=== PATIENT | female | born 1955 | race Caucasian/White ===

== ENCOUNTER 2021-06-30 14:47 | Emergency (ER) | payer OTHER, SELFPAY ==
--- NOTE | 2021-06-30 14:52 | ED.EYEPROB ---
HPI - Eye Problem General Chief complaint: Eye Problems Stated complaint: eye pain Time Seen by Provider: 06/30/21 15:03 Source: patient and RN notes reviewed Mode of arrival: ambulatory Limitations: no limitations History of Present Illness HPI Narrative: 65-year-old female presents with concern for irritation, slight swelling to the right upper eyelid. Reports symptoms started several days ago. She denies vision changes, eye pain. She denies purulent discharge. MD chief complaint: other (Right eye irritation, eyelid swelling) Related Data Allergies Allergy/AdvReac Type Severity Reaction Status Date / Time measles Allergy Unknown SWELLING Verified 06/30/21 14:58 vaccine,live,attenuated HANDS, ARMS mumps vaccine,live Allergy Unknown SWELLING Verified 06/30/21 14:58 HANDS, ARMS rubella virus live vaccine Allergy Unknown SWELLING Verified 06/30/21 14:58 HANDS, ARMS Review of Systems Review of Systems: CONSTITUTIONAL: Denies malaise, chills, sweats, or fever. EYES: Denies visual changes. Reports right eye redness, irritation, upper eyelid swelling. Denies discharge. ENT: Denies rhinorrhea, congestion, sinus pain, otalgia or sore throat. SKIN: Denies rash or itching. NEUROLOGIC: Denies numbness, weakness, or headache. PSYCHIATRIC: Denies anxiety or depression. All systems reviewed & are unremarkable except as noted in HPI and below PMFSH Comments At time of signature, agree with nursing past medical, surgical, social and family history. There is no relevant family history pertinent to the presenting complaint Exam Narrative: GENERAL: Well-appearing, well-nourished, and in no acute distress. HEAD: Normocephalic, atraumatic. EYES: PERRLA, sclera clear, and EOMI. No nystagmus. Right conjunctivae mildly injected with mild right upper lid edema, lower eyelid unremarkable, no periorbital edema noted ENT: Nares clear, turbinates pink, no rhinorrhea or epistaxis. Mucous membranes moist. TM pearly jay with sharp light reflex bilaterally; no tragal tenderness. NECK: Supple. CHEST: No respiratory distress. Speaks in full sentences. HEART: Regular rate and rhythm. SKIN: Warm, dry, no visible rash. NEURO: Alert and oriented x3. PSYCH: Normal mood and affect Course Course Emergency Course: Patient is aware of diagnosis, understands and agrees to treatment plan. Anticipatory guidance given. Patient agrees to follow-up as directed and is aware of reasons to seek care at the emergency department. Portions of this record may have been created with voice recognition software Level of Care: Express Care Visit Vital Signs Vital signs: Vital Signs Temperature 98.3 F 06/30/21 14:59 Pulse Rate 81 06/30/21 14:59 Respiratory Rate 18 06/30/21 14:59 Blood Pressure 151/89 H 06/30/21 14:59 Pulse Oximetry 99 06/30/21 14:59 Temperature 98.3 F 06/30/21 14:59 Pulse Rate 81 06/30/21 14:59 Respiratory Rate 18 06/30/21 14:59 Blood Pressure 151/89 H 06/30/21 14:59 Pulse Oximetry 99 06/30/21 14:59 Reviewed. MDM - Eye Problem MDM Narrative Medical decision making narrative: Consideration of the following conditions may be warranted for the presenting problem, they are not final diagnoses: Bacterial conjunctivitis, allergic conjunctivitis, viral conjunctivitis, foreign body, blepharitis, chalazion, hordeolum, corneal abrasion, preseptal cellulitis, orbital cellulitis. No evidence of proptosis, ophthalmoplegia, vision loss, pain with eye movement. Exam findings show no acute concerns or changes; patient is non-toxic appearing and is in no distress. Patient is appropriate for outpatient treatment and follow-up. Critical Care Time Critical Care Time Critical Care Time: No Discharge Plan Discharge Clinical Impression: Hordeolum Qualifiers: Hordeolum type: internum Laterality: right Eyelid: upper Qualified Code(s): H00.021 - Hordeolum internum right upper eyelid Patient Disposition: Home, Self-Ca
[2021-06-30 14:59] VITALS: BP 151/89; PULSE 81; RESP 18; TEMP 36.8; O2SAT 99
== END 2021-06-30 15:23 | disposition home or self-care (01) ==
PROVIDERS: Emergency Provider Nurse Practitioner
DX: H00.021 Hordeolum internum right upper eyelid (principal); K21.9 Gastro-esophageal reflux disease without esophagitis; Z96.641 Presence of right artificial hip joint
CPT/HCPCS: 99213; G0463

== ENCOUNTER 2021-10-14 08:39 | Emergency (ER) | payer OTHER, SELFPAY ==
--- NOTE | 2021-10-14 08:41 | ED.URI ---
HPI - URI/Sore Throat General Chief Complaint: Upper Respiratory Infection Stated Complaint: cough/uri Time Seen by Provider: 10/14/21 08:48 Source: patient, family, RN notes reviewed and old records reviewed Mode of arrival: ambulatory Limitations: no limitations History of Present Illness HPI Narrative: 66-year-old female presents to the [facility] with complaints of sinus congestion, cough, bilateral ear pain and pressure. Patient denies any fevers, chest pain, abdominal pain. No nausea vomiting or diarrhea. States since Saturday, 6 days it is just gradually gotten worse. No treatment prior to arrival MD elicited complaint: cough and sinus pain Consistency: constant Related Data Home Medications Medication Instructions Recorded Confirmed famotidine [Pepcid AC] 20 mg PO DAILY 10/14/21 10/14/21 Allergies Allergy/AdvReac Type Severity Reaction Status Date / Time measles Allergy Unknown SWELLING Verified 10/14/21 08:49 vaccine,live,attenuated HANDS, ARMS mumps vaccine,live Allergy Unknown SWELLING Verified 10/14/21 08:49 HANDS, ARMS rubella virus live vaccine Allergy Unknown SWELLING Verified 10/14/21 08:49 HANDS, ARMS Review of Systems Review of Systems: All systems reviewed & are unremarkable except as noted in HPI and below Constitutional: Constitutional: Reports no additional constitutional complaints, Denies chills, Denies fever(s) and Denies headache(s) Eyes: Eyes: Reports no additional eye complaints ENT: Reports as per HPI, Denies vertigo, Denies dizziness, Denies headache(s), Reports nasal congestion and Denies sore throat Comments: Bilateral ear Cardiovascular: Cardiovascular: Reports no additional cardiovascular complaints, Denies chest pain, Denies syncope, Denies rapid heart rate and Denies dyspnea Respiratory: Respiratory: Reports as per HPI, Reports chest congestion, Reports cough, Denies dyspnea and Denies wheezing Gastrointestinal: Gastrointestinal: Reports no additional gastrointestinal complaints, Denies abdominal pain, Denies diarrhea, Denies nausea and Denies vomiting Musculoskeletal: Musculoskeletal: Reports no additional musculoskeletal complaints and Denies numbness Integumentary/Breasts: Skin/Breast: Reports system reviewed and no additional complaints, except as docu Neurologic: Reports system reviewed and no additional complaints, except as documented, Denies vertigo, Denies dizziness, Denies syncope, Denies headache(s), Denies focal weakness and Denies numbness Psychiatric: Psychiatric: Reports no additional psychiatric complaints Allergic/Immunologic: Allergic/Immunologic: Reports no additional allergic/immunologic complaints and Denies wheezing PMFSH Past Medical History Medical History (Updated 10/14/21 @ 09:01 by Aicha Pierre APRN) Patient denies medical problems Surgical History Surgical History (Updated 10/14/21 @ 08:58 by Aicha Pierre APRN) 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 There is no relevant family history pertinent to the patient complaint. Exam Const: General: cooperative, no acute distress, well developed, alert and ill appearing acutely (mild) Nutritional Appearance: well nourished and obese Orientation/consciousness: patient oriented x3 Limitations: no limitations HENMT: Head: normal to inspection Ears: external ears normal, EAC's normal and TM abnormal with fluid behind the TM bilateral General nose exam: Normal external nose present and Abnormal mucous membranes and turbinates present boggy bilateral and erythematous bilateral Face and sinus: sinus tenderness frontal and maxillary Mouth: Yes moist mucous membranes Throat: ton
[2021-10-14 08:48] VITALS: BP 124/68; PULSE 77; RESP 16; TEMP 36.8; O2SAT 97
== END 2021-10-14 09:07 | disposition home or self-care (01) ==
PROVIDERS: Emergency Provider Nurse Practitioner
DX: J40 Bronchitis, not specified as acute or chronic (principal); J01.40 Acute pansinusitis, unspecified; H65.03 Acute serous otitis media, bilateral; Z96.642 Presence of left artificial hip joint
CPT/HCPCS: 99213; G0463

== ENCOUNTER 2022-02-06 14:45 | Emergency (ER) | payer OTHER, SELFPAY ==
[2022-02-06 14:56] VITALS: BP 150/84; PULSE 72; RESP 16; TEMP 36.2; O2SAT 100
--- NOTE | 2022-02-06 15:06 | ED.GENADULT ---
HPI - General Adult General Chief complaint: Environmental Exposure Stated complaint: Exposure to Chemical Smells Time Seen by Provider: 02/06/22 15:06 History of Present Illness HPI narrative: michelle Noel is a 66 yo female with a PMH of GERD, COVID, [facility] some [facility] powder- no difficulty breathing, no wheezing, no coughing ,will swallow difficulty, eyes are clear, occurred 1 hour ago Related Data Home Medications Medication Instructions Recorded Confirmed tizanidine 4 mg tablet 4 mg PO DAILY 02/06/22 02/06/22 Allergies Allergy/AdvReac Type Severity Reaction Status Date / Time measles Allergy Unknown SWELLING Verified 02/06/22 15:04 vaccine,live,attenuated HANDS, ARMS mumps vaccine,live Allergy Unknown SWELLING Verified 02/06/22 15:04 HANDS, ARMS rubella virus live vaccine Allergy Unknown SWELLING Verified 02/06/22 15:04 HANDS, ARMS Review of Systems Review of Systems: CONSTITUTIONAL: Denies fever, chills, sweats. EYES: Denies visual changes, redness, discharge. ENT: Denies rhinorrhea, congestion, sore throat, otalgia. CARDIOVASCULAR: Denies chest pain, palpitations, edema. RESPIRATORY: Denies dyspnea, wheezing, cough GASTROINTESTINAL: Denies abdominal pain, nausea, vomiting, diarrhea. GENITOURINARY: Denies dysuria, hematuria, abnormal discharge SKIN: Denies rash or itching. NEUROLOGIC: Denies numbness, or focal weakness. PSYCHIATRIC: Denies anxiety or depression. 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 There is no relevant family history pertinent to the presenting complaint. Exam Narrative: GENERAL: This is a well-nourished, well-developed patient, in mild distress. HEAD: normocephalic, atraumatic. EYES: Sclera clear/white. Vision is grossly intact. She has a stye in her right eye but no markings from the chemicals EARS: External ears normal, Hearing grossly intact. NOSE: External nose normal without nasal discharge, nares without redness, no rhinorrhea. No narrowing THROAT: Mucous membranes moist, posterior pharynx pink-voice is normal tender tender, no nuñez in mouth or lips or base of nose NECK: Neck supple, non-tender CARDIOVASCULAR: Regular rate and rhythm without murmurs, gallops, or rubs. RESPIRATORY: Clear to auscultation. Breath sounds equal bilaterally. No wheezes, rales, or rhonchi. GASTROINTESTINAL: Abdomen soft, non-tender, SKIN: warm, intact with no suspicious lesions or rash, good texture and turgor. NEURO: awake, alert, and oriented to person, place and time. There were no obvious focal neurologic abnormalities. Steady gait EXTREMITIES: Normal range of motion. BACK: Nontender without deformity Course Course Emergency Course: Patient flushed her face and nose when this first happened She is good to go home and take a warm shower She has Flonase at home that she gets stuffy later Encouraged to drink fluids tonight Level of Care: Express Care Visit Vital Signs Vital signs: Vital Signs Temperature 97.2 F L 02/06/22 14:56 Pulse Rate 72 02/06/22 14:56 Respiratory Rate 16 02/06/22 14:56 Blood Pressure 150/84 H 02/06/22 14:56 Pulse Oximetry 100 02/06/22 14:56 Oxygen Delivery Room Air 02/06/22 14:56 Temperature 97.2 F L 02/06/22 14:56 Pulse Rate 72 02/06/22 14:56 Respiratory Rate 16 02/06/22 14:56 Blood Pressure 150/84 H 02/06/22 14:56 Pulse Oximetry 100
== END 2022-02-06 15:28 | disposition home or self-care (01) ==
PROVIDERS: Emergency Provider Nurse Practitioner
DX: Z77.098 Contact with and (suspected) exposure to other hazardous, chiefly nonmedicinal, chemicals (principal); H00.012 Hordeolum externum right lower eyelid; Z86.16 Personal history of COVID-19; K21.9 Gastro-esophageal reflux disease without esophagitis
CPT/HCPCS: 99211; G0463

== ENCOUNTER 2022-07-03 09:40 | Emergency (ER) | payer MEDICARE, SELFPAY ==
[2022-07-03 10:00] VITALS: BP 128/48; PULSE 81; RESP 16; TEMP 36.8; O2SAT 97
--- NOTE | 2022-07-03 10:37 | ED.URI ---
HPI - URI/Sore Throat General Chief Complaint: Upper Respiratory Infection Stated Complaint: uri Time Seen by Provider: 07/03/22 10:37 Source: patient and RN notes reviewed Mode of arrival: ambulatory Limitations: no limitations History of Present Illness HPI Narrative: 67-year-old female presented for complaint of sinus congestion, nasal drainage, cough and sore throat for about 1 week. Denies sick contacts. She denies shortness of breath, wheezing, vomiting, diarrhea, fevers or chills. She is taking [id number] Mucinex without relief. She has taken home COVID test since onset of symptoms which was negative. MD elicited complaint: cough Related Data Home Medications Medication Instructions Recorded Confirmed omeprazole 20 mg capsule,delayed 20 mg DAILY 07/03/22 07/03/22 release Allergies Allergy/AdvReac Type Severity Reaction Status Date / Time measles Allergy Unknown SWELLING Verified 07/03/22 10:05 vaccine,live,attenuated HANDS, ARMS mumps vaccine,live Allergy Unknown SWELLING Verified 07/03/22 10:05 HANDS, ARMS rubella virus live vaccine Allergy Unknown SWELLING Verified 07/03/22 10:05 HANDS, ARMS Review of Systems Review of Systems: CONSTITUTIONAL: Denies malaise, chills, sweats, fever EYES: Denies visual changes, redness, or discharge ENT: Reports rhinorrhea, congestion, sinus pain, otalgia, sore throat CARDIOVASCULAR: Denies chest pain, palpitations, edema RESPIRATORY: Reports cough, post nasal drainage. 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 TM pearly jay with dull light reflex bilaterally; no tragal tenderness. Oropharynx mildly erythematous without lesions or exudate NECK: Supple. No lymphadenopathy CHEST: Clear to auscultation, breath sounds equal. No wheezing, rhonchi, rales, or stridor. No respiratory distress, speaks in full sentences. HEART: Regular rate and rhythm. No murmur heard. SKIN: Warm, dry, no rash. NEURO: Alert and oriented x3. PSYCH: Normal mood and affect Course Course Emergency Course: Patient is aware of diagnosis, understands and agrees to treatment plan. Anticipatory guidance given. Patient agrees to follow-up as directed and is aware of reasons to seek care at the emergency department. Portions of this record may have been created with voice recognition software Level of Care: Express Care Visit Vital Signs Vital signs: Vital Signs Temperature 98.2 F 07/03/22 10:00 Pulse Rate 81 07/03/22 10:00 Respiratory Rate 16 07/03/22 10:00 Blood Pressure 128/48 L 07/03/22 10:00 Pulse Oximetry 97 07/03/22 10:00 Oxygen Delivery Room Air 07/03/22 10:00 Temperature 98.2 F 07/03/22 10:00 Pulse Rate 81 07/03/22 10:00 Respiratory Rate 16 07/03/22 10:00 Blood Pressure 128/48 L 07/03/22 10:00 Pulse Oximetry 97 07/03/22 10:00 Oxygen Delivery Room Air 07/03/22 10:00 reviewed MDM - URI/Sore Throat MDM Narrative Medical decision making narrative: Resolve strep test reviewed with patient. Advised supportive measures and signs/symptoms to go to the ER. Pt is appropriate for outpt treatment and f/u. Differential Diagnosis Differential diagnosis: Likely upper respiratory infection, sinusitis and viral infection Lab Data Labs:
== END 2022-07-03 10:48 | disposition home or self-care (01) ==
PROVIDERS: Emergency Provider Nurse Practitioner Family
DX: J06.9 Acute upper respiratory infection, unspecified (principal); Z96.642 Presence of left artificial hip joint
CPT/HCPCS: 87081; 87880; 99213; G0463

== ENCOUNTER 2024-08-18 11:27 | Emergency (ER) | payer MEDICARE, SELFPAY ==
[2024-08-18 11:39] VITALS: BP 153/89; PULSE 68; RESP 16; TEMP 35.8; O2SAT 98
[2024-08-18 12:02] LABS: EDUAAPPEAR Clear; EDUABILI Negative (Negative); EDUABLOOD Trace (Negative); EDUACOLOR1 Yellow; EDUAGLUCOSE Negative (Negative); EDUAKETONE Negative (Negative); EDUALEUKO 1+ (Negative); EDUANITRATE Negative (Negative); EDUAPROTEIN Trace (Negative); EDUAUROBILI 0.2
--- NOTE | 2024-08-18 12:09 | ED_ITS ---
HPI - Female Genitourinary General Chief complaint: Urogenital-Female Stated complaint: right lower back pain Time Seen by Provider: 08/18/24 12:10 Source: patient and RN notes reviewed Mode of arrival: ambulatory Limitations: no limitations History of Present Illness HPI Narrative: 69-year-old female presents with concern for right low back pain started on Saturday. Reports she did heavy lifting with bags of mulch on Saturday. She reports she took ibuprofen with some relief. She also reports she had a few intermittent lower abdominal/bladder spasms and also fell a she was peeing a more frequently. She denies dysuria, urgency. Denies fever, chills, nausea, vomiting. She denies history of urinary tract infections. Reports her symptoms are movement dependent and she finds positions of comfort without pain when she is not moving MD elicited complaint: UTI Related Data Home Medications ?Medication ?Instructions ?Recorded ?Confirmed ?Last Taken ?Type omeprazole 20 mg capsule,delayed 20 mg DAILY 07/03/22 07/03/22 Unknown History release Allergies Allergy/AdvReac Type Severity Reaction Status Date / Time measles Allergy Unknown SWELLING Verified 08/18/24 11:43 vaccine,live,attenuated HANDS, ARMS mumps vaccine,live Allergy Unknown SWELLING Verified 08/18/24 11:43 HANDS, ARMS rubella virus live vaccine Allergy Unknown SWELLING Verified 08/18/24 11:43 HANDS, ARMS Review of Systems Review of Systems: CONSTITUTIONAL: Denies malaise, chills, sweats, or fever. CARDIOVASCULAR: Denies chest pain, palpitations, or edema. RESPIRATORY: Denies cough or dyspnea. GASTROINTESTINAL: Denies abdominal pain, nausea, vomiting, diarrhea. Reports intermittent suprapubic pressure GENITOURINARY: Denies dysuria, urgency, suprapubic pressure. Denies flank pain or hematuria. Reports urine frequency SKIN: Denies rash or itching. MUSCULOSKELETAL: Reports right low back pain. Denies myalgia. 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 There is no relevant family history pertinent to the presenting complaint Exam Narrative: GENERAL: Well-appearing, well-nourished, and in no acute distress. HEAD: Normocephalic, atraumatic. EYES: PERRLA and EOMI. NECK: Supple. No lymphadenopathy. CHEST: Clear to auscultation. No respiratory distress. HEART: Regular rate and rhythm. Distal pulses palpable and equal, cap refill <3 seconds ABDOMEN: Soft, nontender, nondistended, normal active bowel sounds, no palpable or pulsatile masses. No CVA tenderness MUSCULOSKELETAL: Normal range of motion and strength in all extremities; 5/5 strength with hip flexion and extension, dorsiflexion and extension, knee flexion and extension, plantar flexion and extension. Normal sensation in dermatomal distributions with sensitivity to light touch and pain. No midline back tenderness to palpation. No paraspinal tenderness. Transfers from lying to sitting to standing. SKIN: Warm, dry, no rash. No ecchymosis, erythema, open wounds to back. NEURO: No focal deficits. Alert and oriented x3. Reflexes intact. Normal gait. PSYCH: Normal mood and affect Course Course Emergency Course: Discussed UA findings and symptoms with patient. Through shared decision- making, we will treat for nonspecific low back pain and culture urine since patient's symptoms are movement dependent and occurred after heavy lifting, she does not have dysuria and does not have a history of urinary tract infections. We will not start antibiotics until we have culture results. Patient is aware of, understands and agrees to treatment plan. Anticipatory guidance given. Patient agrees to follow-up as directed and is aware of reasons to seek care at the emergency department. Portions of this record may have been created with voice recognition software Level of Care: Express Care Visit Vital Signs Vital signs: Vital Signs Temperature 96.4 F L 08/18/24 11:39 Pulse Rate 68 08/18/24 11:39 Respiratory Rate 16 08/18/24 11:39 Blood Pressure 153/89 H 08/18/24 11:39 Pulse Oximetry 98 08/18/24 11:39 Oxygen Delivery Room Air 08/18/24 11:39 Temperature 96.4 F L 08/18/24 11:39 Pulse Rate 68 08/18/24 11:39 Respiratory Rate 16 08/18/24 11:39 Blood Pressure 153/89 H 08/18/24 11:39 Pulse Oximetry 98 08/18/24 11:39 Oxygen Delivery Room Air 08/18/24 11:39 Reviewed. MDM - Female Genitourinary MDM Narrative Medical decision making narrative: Exam findings and UA show no acute concerns or changes; patient is non-toxic appearing and is in no distress. Patient is appropriate for outpatient treatment and follow-up. Differential Diagnosis Differential diagnosis: Likely urinary tract infection and cystitis Lab Data Labs: Lab Results 08/18/24 Range/Units 11:50 POC Urine Color Yellow POC Urine Clarity Clear POC Urine pH 6.0 POC Ur Specif [place] 1.020 POC Urine Protein Trace (Negative) POC Ur Glucose (UA) Negative (Negative) POC Urine Ketones Negative (Negative) POC Urine Blood Trace (Negative) POC Urine Nitrite Negative (Negative) POC Urine Bilirubin Negative (Negative) POC Urine Urobilinogen 0.2 POC U Leukocyte Esteras 1+ (Negative) Critical Care Time Critical Care Time Critical Care Time: No Discharge Plan Discharge Clinical Impression: Nonspecific low back pain Patient Disposition: Home, Self-Care Condition: Stable Instructions: Acute Low Back Pain (ED) Additional Instructions: We will send a urine culture to the lab; if the culture identifies an organism that requires antibiotic, you will receive a phone call from an urgent care staff member and an appropriate antibiotic will be prescribed. Please follow up with your Primary Care Doctor within 48-72 hours - call for an appointment. Walking and other gentle exercising several times a week has been shown to improve back pain; bed rest is not recommended. Take Motrin 800mg every 6-8 hours with food for the next 2-3 days, take muscle relaxers every 8 hours as needed for muscle spasm- do not drive or make any important decisions while on this medication for it can make you drowsy. You may apply heat or cold to the area as needed. If you experience any worsening pain, swelling, numbness, weakness please go to ER. Contact your doctor or go to the emergency department if you develop problems with bladder or bowel function, weakness or loss of feeling in one or both of your legs, or any other serious concerns. Patient Language: Luxembourgish Prescriptions: New cyclobenzaprine 10 mg tablet 10 mg PO TID PRN (Reason: muscle spasm) Qty: 20 0RF ibuprofen 800 mg tablet 800 mg PO Q6H PRN (Reason: pain) Qty: 30 0RF No Action omeprazole 20 mg capsule,delayed release(DR/EC) 20 mg DAILY Follow-up/Referrals: PHYSICIAN NOT ON STAFF,NONSTAFF [Primary Care Provider] - Time of Disposition: 12:21
== END 2024-08-18 12:25 | disposition home or self-care (01) ==
PROVIDERS: Emergency Provider Nurse Practitioner
DX: M54.50 Low back pain, unspecified (principal); Z96.642 Presence of left artificial hip joint
CPT/HCPCS: 81003; 87086; 99213; G0463